=== PATIENT | female | born 1970 | race Caucasian/White ===

== ENCOUNTER → 2017-08-13 08:47 | Emergency (ER) | payer BC ==
[~2017-08-13 08:47] MED LIST: Aspirin Low Dose CHEW TAB* 81 MG ONE; Aspirin Low Dose CHEW TAB* 81 MG PO ONE; Cyclobenzaprine TAB* 10 MG PO ONE; Iohexol 300* (CONTRAST) 10 ML SDV IV ONE; Morphine INJ* 2 MG/ML 1 ML CARPUJECT IV ONE; Morphine INJ* 2 MG/ML 1 ML SYRINGE (TWO MG - NEW SYRINGE VERSION) ONE; Ondansetron INJ* 2 MG/ML VIAL IV ONE
--- NOTE | 2017-08-13 09:34 | RAD ---
Indication: Chest pain. Single frontal view of the chest performed at 0910 hours was reviewed. Comparison is made with previous exam dated February 13, 2014. No mediastinal shift is noted. Heart is of normal size and configuration. Lung gandara appear clear. IMPRESSION: NO ACTIVE CARDIOPULMONARY DISEASE IS NOTED.
[2017-08-13 09:40] LABS: Hematocrit 39 % (35-47); Hemoglobin 13.3 g/dl (12.0-16.0); Mean Corpuscular HGB Conc 34 g/dl (31-36); Mean Corpuscular Hemoglobin 30 pg (27-31); Mean Corpuscular Volume 89 fL (80-97); Mean Platelet Volume 9 um3 (7.4-10.4); Red Blood Count 4.41 10^6/ul (4.0-5.4); Red Cell Distribution Width 14 % (10.5-15); White Blood Count 5.2 10^3/ul (3.5-10.8)
--- NOTE | 2017-08-13 09:40 | ED ---
HPI Chest Pain - HPI Summary HPI Summary: Patient is a 47yo F who with a history of MVP who presents to the ED with chest tightness and pressure in the left anterior chest wall described as deep, 10/10 this morning, intermittent with associated left arm numbness and tingling which has remained constant since this morning while driving to work (approx 2 hours ago). She continued to work and the pain had not subsided so came to ED. She notes the discomfort in the left anterior chest wall also radiates to the left scapularis area and describes it as deep. Denies history of musculoskeletal pain or pinched nerves. Denies weakness in the bilateral arms. The pain began yesterday in the epigastric region with associated nausea and early satiation. Sxs not worse or better with food. Not worse with exertion or better with rest. Not better or worse with recumbent position. Pain does not radiate to the midback. Last BM this morning which did not improve her sxs. She felt as though it was indigestion, although she has no history of such, and took 3 tums without immediate relief. Prior to going to bed last evening, the pain had subsided and returned again in the middle of the night several hours later. Denies diaphoresis, fevers, sweats, chills, viral symptoms, cough, rhinnorhea, or travel. Denies SOB. 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 Personal history includes recent intentional weight loss + 50 lbs and eats very healthy with diet consisting mostly of bran and vegetables. PMHx includes MVP at age 17yo which she was on a beta bere for a short period of time. The MVP spontaneously resolved and she has not had an echo since late teens. Also hx of migraine which presents only as numbness/tingling in the left side body of the neck with radiating weakness. Last episode hospitalized in 2013 with no findings of stroke. Family history is only significant for father with a-fib and CHF. She takes no medications, denies allergies. She is in no acute discomfort at this time, but remains with numbness and tingling in the left arm. She has not taken aspirin. - History of Current Complaint Chief Complaint: EDChestPainROMI Time Seen by Provider: 08/13/17 09:05 Hx Obtained From: Patient Onset/Duration: Started Days Ago Timing: Constant Initial Severity: Moderate Current Severity: Moderate Pain Intensity: 5 Pain Scale Used: 0-10 Numeric Chest Pain Location: Mid Sternal, Left Anterior Chest Pain Radiates: Yes Chest Pain Radiates To:: Shoulder, Arm Character: Heaviness, Pressure/Squeezing Aggravating Factor(s): Nothing Alleviating Factor(s): Nothing Associated Signs and Symptoms: Positive: Chest Pain, Numbness, Tingling, Nausea. Negative: Vision Changes, Anxiety, Recent Stress, Shortness of Breath, Syncope, Lightheadedness, Diaphoresis, Palpitations, Cough, Calf Pain/Swelling, Vomiting, Nasal Congestion, URI, Hoarseness - Risk Factors Pulmonary Embolism Risk Factors: Negative TAD Risk Factors: Negative - Allergy/Home Medications Allergies/Adverse Reactions: Allergies Allergy/AdvReac Type Severity Reaction Status Date / Time Acetaminophen AdvReac Severe Nausea And Verified 05/20/15 09:33 [From Oxycodone Vomiting W/Acetaminophen] Oxycodone AdvReac Severe Nausea And Verified 05/20/15 09:33 [From Oxycodone Vomiting W/Acetaminophen] PMH/Surg Hx/FS Hx/Imm Hx Previously Healthy: Yes Endocrine/Hematology History: Denies: Hx Diabetes Cardiovascular History: Denies: Hx Congestive Heart Failure, Hx Hypertension, Hx Pacemaker/ICD Respiratory History: Reports: Hx Asthma History: Denies: Hx Renal Disease Musculoskeletal History: Reports: Hx Back Problems - Thoracic spine injury Sensory History: Denies: Hx Hearing Aid Psychiatric History: Denies: Hx Panic Disorder - Cancer History Hx Chemotherapy: No Hx Radiation Therapy: No - Surgical History Surgery Procedure, Year, and Place: TUBAL LIGATION 1995 - Immunization History Hx Pertussis Vaccination: No Immunizations Up to Date: Unable to Obtain/Confirm Infectious Disease History: No Infectious Disease History: Denies: Traveled Outside the [place] in Last 30 Days - Social History Occupation: Employed Full-time Lives: With Family Alcohol Use: Rare Hx Substance Use: No Substance Use Type: Reports: None Hx Tobacco Use: No Smoking Status (MU): Never Smoked Tobacco Review of Systems - ROS Summary Review of Systems Summary: Constitutional: The patient denies fever, SAEED. Endorses night sweats d/t menopause. HEENT: Head: The patient denies headaches or dizziness. Eyes: The patient denies diplopia, blurry vision, eye pain, eye discharge, photophobia. Throat: The patient denies sore throats or hoarseness. Cardiovascular: The patient endorses chest pain as a tightness/pressure. Denies palpitations, syncope, night cramps, or orthostasis. Respiratory: The patient denies cough, sputum production, hemoptysis, dyspnea, wheezing. Gastrointestinal: The patient denies odynophagia, dysphagia, hematemesis, melenemesis. Denies abdominal pain, nausea or vomiting. Denies constipation or diarrhea. Genitourinary: Patient denies dysuria, hematuria, or pyuria. Patient denies back pain. Denies vaginal discharge, vaginal bleeding. Denies other urinary symptoms. Muscles: The patient denies myalgia, strain or weakness. Joints: The patient denies arthralgia and/or arthritis. Neurologic: The patient denies headache, loss of consciousness, or seizure. Dermatologic: The patient denies hyperpigmentation, rash, or photosensitivity. Constitutional: Negative Negative: Fever, Chills, Fatigue Positive: Chest Pain Respiratory: Negative Genitourinary: Negative Positive: no symptoms reported, see HPI Positive: Myalgia - left scapular pain Skin: Negative Positive: Paresthesia, Numbness Psychological: Normal All Other Systems Reviewed And Are Negative: Yes Physical Exam - Summary Physical Exam Summary: Appearance: WDW, comfortable, pleasant, alert Skin: Soft dry skin, no lesions. Nailbeds pink with no cyanosis or clubbing. No petechia noted. Eyes: RANDY, EOMI, Conjunctiva pink with no redness or exudates. Mouth: Dentition without lesions. Moist mucosa Neck: Full range of motion. Palpable thyroid. Trachea at midline. No lymphadenopathy. Pulm: Chest symmetrical expansion. No deformities on posterior chest wall. Lungs clear to auscultation and percussion, without adventitious sounds. CV: No JVD. No deformities on anterior chest wall. Heart sounds. RRR, Normal S1 and single S2. No S3, S4, rubs, or murmurs. Carotids 2+ bilaterally without bruits. . exam not performed Abd: Soft, non-tender, bowel sounds in all 4 quadrants. No pain on deep palpation. Negative obturator. Negative wolfe's. No tenderness at mcburney' s point. Musculoskeletal: Flexion and extension of neck limited d/t pain. No deformities noted. Pulses full and equal. Neuro: Motor strength is 5/5 in upper and lower extremities bilaterally. A&OX3 Psych: Logical, coherent Triage Information Reviewed: Yes Vital Signs On Initial Exam: Initial Vitals Temp Pulse Resp BP Pulse Ox 98.0 F 74 20 162/69 100 08/13/17 08:48 08/13/17 08:48 08/13/17 08:48 08/13/17 08:48 08/13/17 08:48 Vital Signs Reviewed: Yes Appearance: Positive: Well-Appearing, Well-Nourished Skin: Positive: Warm, Skin Color Reflects Adequate Perfusion Head/Face: Positive: Normal Head/Face Inspection Eyes: Positive: EOMI, RANDY, Conjunctiva Clear Neck: Positive: Supple, No Lymphadenopathy Respiratory/Lung Sounds: Positive: Clear to Auscultation, Breath Sounds Present Cardiovascular: Positive: RRR, Pulses are Symmetrical in both Upper and Lower Extremities Musculoskeletal: Positive: Normal, Strength/ROM Intact Neurological: Positive: Sensory/Motor Intact, Alert, Oriented to Person Place, Time, Speech Normal Psychiatric: Positive: Normal AVPU Assessment: Alert Diagnostics - Vital Signs Vital Signs Temp Pulse Resp BP Pulse Ox 08/13/17 09:11 71 11 99 08/13/17 09:10 133/65 08/13/17 08:48 98.0 F 74 20 162/69 100 - Laboratory Result Diagrams: 08/13/17 09:23 08/13/17 09:23 Lab Statement: Any lab studies that have been ordered have been reviewed, and results considered in the medical decision making process. Chest Pain Course/Dx - Course Course Of Treatment: During the course of treatment, Chest xray negative for any findings. This was compared to 2013 Chest Xray. She is not given aspirin d /t onset of symptoms > 24 hours ago. Trop 0.01. Second trop 0.01. EKG shows sinus rhythm and borderline short IL interval. Rate is 68. This was compared to 2013 which shows NSR. VS stable at 133/65; resp 11; HR 73. Upon re-check, she began to have worsening chest pain located anterior lateral chest wall radiating to the left arm as a tightness. She is given aspirin 324mg and flexieril. Recheck 20 minutes later with effect of pain from 06/27 to 12/25. Chest CT negative for acute findings. Discussed with patient this is likely musculoskeletal. She is OK with discharge and plan to follow up with PCP. Discussed case with Dr. Elias who agrees with plan for patient to follow up as no images, labs are concerning at this time. - Chest Pain Differential Diagnosis/HQI/PQRI: Angina, Chest Wall - Diagnoses Provider Diagnoses: Chest pain Discharge - Discharge Plan Condition: Stable Disposition: HOME Patient Education Materials: Thoracic Pain (ED) Referrals: Susan Sue NP [Primary Care Provider] - Additional Instructions: Please follow up with your PCP As discussed, all labs and imaging were normal/OK This likely is a musculoskeletal issues, but please follow up with your PCP about this Ibuprofen 600mg three times daily for pain/inflammation If any symptoms worsen, or fail to improve - return to the ED
[2017-08-13 09:51] LABS: Albumin 4.5 g/dL (3.2-5.2); BUN/Creatinine Ratio 26.3 (8-20); Calcium 9.9 mg/dL (8.6-10.3); EGFR African American 104.5 (>60); EGFR Non-African American 81.2 (>60); Globulin 2.8 g/dL (2-4); Total Bilirubin 1.6 mg/dL (0.2-1.0); Total Protein 7.3 g/dL (6.4-8.9)
[2017-08-13 09:54] LABS: Troponin I 0.01 ng/mL (<0.04)
--- NOTE | 2017-08-13 11:39 | RAD ---
INDICATION: LEFT side chest pain. COMPARISON: Chest radiograph of the same date TECHNIQUE: Multidetector CT images were obtained from the lung apices to the upper abdomen with 80 mL Omnipaque 300 IV contrast. Multiplanar reformation. REPORT: Clear lungs and pleural spaces. Negative for pneumothorax. Negative for thoracic lymphadenopathy. Negative for cardiomegaly or pericardial effusion. Unremarkable normal diameter thoracic aorta. Unremarkable Limited images through the upper abdomen. Negative for thoracic fracture or suspicious focal osseous lesion. IMPRESSION: No thoracic pathologic process evident.
[2017-08-13 13:33] VITALS: BP 118/62
== END | disposition home or self-care (01) ==
LOC: ED 08:47
DX: R07.9 Chest pain, unspecified (principal)
CPT/HCPCS: 36415; 71010; 71260; 80053; 82550; 82553; 83605; 83735; 83874; 83880; 84484; 85025; 85610; 85730; 93005; 96374; 96375; 99283; A9270-GY; J2270; J2405; Q9967